=== PATIENT | female | born 1935 | race Caucasian/White ===

== ENCOUNTER 2021-01-19 06:17 | Emergency (ER) | payer MEDICARE, SELFPAY ==
--- NOTE | ~2021-01-19 | CT_ITS ---
EXAMINATION: CT ABDOMEN AND PELVIS WITH CONTRAST CLINICAL INFORMATION: Lower abdominal pain COMPARISON: Renal ultrasound 10/17/2013 TECHNIQUE: Multidetector volumetric images were obtained from the superior aspect of the liver through the pubic symphysis following administration 85 mL of Omnipaque 350 intravenous contrast. Sagittal and coronal reformatted images were obtained on the technologist's workstation. Oral contrast: No This CT examination was performed using dose optimization techniques as appropriate, variously including the following: *Automated exposure control *Adjustment of mA and/or kV according to patient size (this includes techniques or standardized protocols for targeted exams where dose is matched to indication/reason for exam; i.e. extremities or head) *Use of iterative reconstruction technique DLP: 560 mGy-cm FINDINGS: LUNG BASES: No acute findings. LIVER, GALLBLADDER, AND BILIARY TREE: Multiple scattered hepatic cysts. Mild intrahepatic biliary dilatation. Marked dilatation of the common bile duct throughout its extent measuring up to 1.8 cm. Minimal distal tapering to the pancreatic head where it measures 1.2 cm. Cholecystectomy. PANCREAS: Unremarkable. SPLEEN: Unremarkable. ADRENAL GLANDS: Unremarkable. 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 There is 1.4 cm indeterminate low-density lesion exophytic off the lower pole left kidney measuring internal attenuation of 29 Hounsfield units. Right renal cysts. No evidence of left hydronephrosis. Moderate right hydronephrosis and dilated extrarenal pelvis. There is an obstructing proximal ureteral calculus seen measuring 0.7 cm and up to 1100 Hounsfield units. There is minimal periureteral stranding. The ureter distal to the stone is decompressed. BLADDER: Unremarkable. GASTROINTESTINAL TRACT: Diverticulosis without CT evidence of diverticulitis. The appendix is unremarkable. No evidence of bowel obstruction. Duodenal diverticula. ABDOMINAL WALL: No significant hernia is appreciated. LYMPH NODES: No lymphadenopathy within the abdomen or pelvis by CT criteria. VASCULAR: Extensive atherosclerotic disease of the abdominal aorta without aneurysm. Areas of mild dilatation of the aorta are seen measuring up to 2.3 x 2.4 cm. PELVIC VISCERA: Unremarkable. OSSEOUS STRUCTURES: Right hip arthroplasty. Degenerative changes of the spine. CT/CT abdomen pelvis w con IMPRESSION: 1. There is an obstructing proximal right ureteral calculus measuring 0.7 cm resulting in moderate right hydroureteronephrosis. The ureter distal to the calculus is decompressed. 2. 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 3. Indeterminate low-density lesion exophytic off the lower pole left kidney, measuring greater than simple fluid. Although this may represent a complex cyst, confirmation with ultrasound is recommended to ensure the contents are not solid as neoplasm is also within the differential diagnosis. 4. Intrahepatic and extrahepatic biliary dilatation, nonspecific but most likely secondary to the patient's cholecystectomy status as well as age. 5. Other chronic and nonacute findings as above.
[2021-01-19 06:34] VITALS: BP 174/82; PULSE 86; RESP 15; TEMP 36.9; O2SAT 95; BMI 24.6
--- NOTE | 2021-01-19 07:04 | ED_ITS ---
HPI - Abdominal Pain General Chief Complaint: Abdominal Pain Stated Complaint: cramping on lower abd thru back Time Seen by Provider: 01/19/21 07:03 History of Present Illness HPI narrative: 85-year-old female presents today having abdominal pain mainly over lower abdomen last 24-48 hours. Patient denies any fever chills able to urinate fine. No nausea no vomiting. Positive history of cholecystectomy. No other abdominal surgery. No cough no congestion or upper respiratory symptoms. No diarrhea. No change in color of stool. No vomiting. Three episodes of urination no pain. Patient denies any diaphoresis. No chest pain. Pain radiates to the back. She describes it as sharp. Constant. Related Data Previous Rx's Medication Instructions Recorded oxycodone 5 mg tablet 5 mg PO Q8H PRN #7 tab 01/19/21 tamsulosin 0.4 mg capsule (Flomax) 0.4 mg PO DAILY #7 cap 01/19/21 Allergies Allergy/AdvReac Type Severity Reaction Status Date / Time No Known Allergies Allergy Verified 01/19/21 07:03 Review of Systems Review of Systems Positive lower abdominal pain No fever no chills no cough no congestion or upper respiratory symptoms No pain on urination No frequency All systems reviewed otherwise negative Physical Exam Vital Signs: Vital Signs: Last Vital Signs Temp 98.5 F 01/19/21 06:34 Pulse 86 01/19/21 10:00 Resp 18 01/19/21 10:13 BP 182/95 H 01/19/21 10:00 Pulse Ox 96 01/19/21 10:00 Body Mass Index 24.6 Appearance: Alert. Oriented X3. No acute distress. Eyes: Pupils equal, round and reactive to light. ENT: Pharynx normal. Neck: Normal inspection. Neck supple. No lymph nodes noted. No crepitus CVS: Normal heart rate and rhythm. Pulses normal. Normal S1 and S2 Respiratory: No respiratory distress. Breath sounds normal. No Wheezing. No rales Abdomen: Soft and nontender. No rigidity. No distention. good BS x4 Skin: Skin warm and dry. Normal skin color. Normal skin turgor. Extremities: No lower extremity edema. Neurovascular intact to all extremities. No Lacerations. No Rash Neuro: Oriented X 3. No motor deficit. No sensory deficit. Moving all extermities. No slurred speech MDM - Abdominal Pain MDM Narrative Medical decision making narrative: Patient given pain medication with good relief of symptoms. BUN creatinine is normal. Urine showed no signs of infection. Will discharge patient home. There is a mass noted in the kidney. Will require follow-up on an outpatient basis. Risk of cancer explain to patient. CT scan showed no evidence of obstruction, abscess, perforation. Lab Data Result diagrams: 01/19/21 07:30 01/19/21 07:30 Labs: Lab Results 01/19/21 01/19/21 01/19/21 Range/Units 07:30 07:30 08:12 WBC 8.4 (4.8-10.8) X10*3/uL RBC 4.65 (4.20-5.50) X10*6/uL Hgb 15.0 (12.0-16.0) g/dl Hct 42.4 (37-47) % MCV 91.2 (80-98) fL MCH 32.3 (27.0-33.0) pg MCHC 35.4 H (31.0-35.0) g/dl RDW 12.3 (11.0-16.0) % Plt Count 272 (160-400) X10*3/uL MPV 8.8 L (9.4-12.3) fL Immature Gran % (Auto) 0.6 H (0.0-0.4) % Neut % (Auto) 84.3 H (45-73) % Lymph % (Auto) 9.9 L (20-40) % [place] % (Auto) 4.9 (2-11) % Eos % (Auto) 0.1 (0-4) % Baso % (Auto) 0.2 (0-2) % Lymph # (Auto) 0.8 L (1.2-4.9) X10*3/uL [place] # (Auto) 0.4 (0.1-1.2) X10*3/uL Eos # (Auto) 0.0 (0.0-0.4) X10*3/uL Baso # (Auto) 0.0 (0.0-0.2) X10*3/uL Abs Immat Gran (auto) 0.05 H (0.00-0.03) X10*3/uL Absolute Neuts (auto) 7.0 (2.0-8.3) X10*3/uL Absolute Nucleated RBC 0.000 (0.0-0.012) X10*3/uL Nucleated RBC % (auto) 0.0 (0.0-0.2) /100WBC Sodium 142 (135-145) mmol/L Potassium 3.8 (3.3-5.1) mmol/L Chloride 108 (96-108) mmol/L Carbon Dioxide 24 (22-29) mmol/L Anion Gap 14 (12-20) BUN 12 (9-16) mg/dL Creatinine 0.66 (0.5-1.4) mg/dL Estim Creat Clear Calc 57.7 Estimated GFR > 60 Random Glucose 113 (60-115) mg/dL Calcium 9.4 (8.4-10.2) mg/dL Total Bilirubin 0.6 (0.0-1.0) mg/dL Direct Bilirubin 0.2 (0.0-0.5) mg/dL AST 20 (5-31) U/L ALT 13 (0-31) U/L Alkaline Phosphatase 62 (39-117) U/L Total Protein 7.0 (6.5-8.0) g/dL Albumin 4.2 (3.5-5.0) g/dL Lipase 15 (8-78) U/L Urine Color YELLOW Urine Appearance HAZY Urine pH 6.5 (5.0-8.0) Ur Specific [place] 1.015 (1.005-1.025) Urine Protein NEG (NEG-TRACE) MG/DL Urine Glucose (UA) NEG (NEG) MG/DL Urine Ketones NEG (NEG) MG/DL Urine Blood 3+ H (NEG) Urine Nitrite NEG (NEG) Ur Leukocyte Esterase NEG (NEG) Urine RBC 15-29 H (0) /HPF Urine WBC 0-2 (0-4) /HPF Ur Squamous Epith Cells 1+ /LPF Urine Bacteria NONE /LPF Discharge Plan Discharge Clinical Impression: Renal colic Patient Disposition: Home, Self-Care Instructions: Renal Colic (ED) Additional Instructions: A mass/cyst was also found in your kidney. You must follow-up for this. Risk of cancer exists. An ultrasound on an outpatient basis as needed Prescriptions: New tamsulosin [Flomax] 0.4 mg capsule 0.4 mg PO DAILY Qty: 7 RF: 0 oxycodone 5 mg tablet 5 mg PO Q8H PRN (Reason: pain) Qty: 7 RF: 0 Referrals: Sebastian De Jesus III, MD [Physician] - 2 days (A mass was also found in your kidney. An ultrasound is needed to delineate this mass.) [facility], [facility] Past Medical History Attestation statement: The following information was validated with the patient. Social History Social History Advance Directives: No Advance Directives Information Provided: Yes
--- NOTE | 2021-01-19 07:10 | PC.NURSE ---
Report given to RENÉE Cam
[2021-01-19 07:37] VITALS: RESP 18
[2021-01-19] MEDS: ondansetron HCL 4 MG/2 ML VIAL IVPUSH (07:37)
[2021-01-19] MEDS: Morphine Sulfate 2 MG/ML CARTRIDGE IVPUSH ×2 (07:37→09:01)
[2021-01-19 07:38] LABS: MANUAL DIFF FLAG NO
[2021-01-19 07:42] LABS: Basophils Percent Auto 0.2 % (0-2); Eosinophils Percent Auto 0.1 % (0-4); Hematocrit 42.4 % (37-47); Imm Gran Abs Auto 0.05 X10*3/uL (0.00-0.03); Imm Gran Pct Auto 0.6 % (0.0-0.4); Lymphocytes Absolute Auto 0.8 X10*3/uL (1.2-4.9); Lymphocytes Percent Auto 9.9 % (20-40); Mean Corpuscular HGB Conc 35.4 g/dl (31.0-35.0); Mean Corpuscular Hemoglobin 32.3 pg (27.0-33.0); Mean Corpuscular Volume 91.2 fL (80-98); Mean Platelet Volume 8.8 fL (9.4-12.3); Monocytes Absolute Auto 0.4 X10*3/uL (0.1-1.2); Monocytes Percent Auto 4.9 % (2-11); Neutrophils Percent Auto 84.3 % (45-73); Platelet Count 272 X10*3/uL (160-400); Red Blood Count 4.65 X10*6/uL (4.20-5.50); Red Cell Distribution Width 12.3 % (11.0-16.0); White Blood Count 8.4 X10*3/uL (4.8-10.8)
[2021-01-19] MEDS: 0.9 % Sodium Chloride 1,000 ML 999 ML IV (07:42)
[2021-01-19 07:59] LABS: Alanine Aminotransferase 13 U/L (0-31); Albumin Level 4.2 g/dL (3.5-5.0); Alkaline Phosphatase 62 U/L (39-117); Anion Gap 14 (12-20); Aspartate Amino Transferase 20 U/L (5-31); Bilirubin Direct 0.2 mg/dL (0.0-0.5); Bilirubin Total 0.6 mg/dL (0.0-1.0); Blood Urea Nitrogen 12 mg/dL (9-16); Calcium 9.4 mg/dL (8.4-10.2); Carbon Dioxide 24 mmol/L (22-29); Chloride 108 mmol/L (96-108); Creatinine Clr Calc Pharmacy 57.7; Estimated Glomerular Filt Rate > 60; Glucose Random 113 mg/dL (60-115); Lipase 15 U/L (8-78); Potassium 3.8 mmol/L (3.3-5.1); Sodium 142 mmol/L (135-145)
[2021-01-19 08:00] VITALS: BP 164/81; PULSE 86; RESP 16; O2SAT 96
[2021-01-19 08:23] LABS: Appearance Urine HAZY; Color Urine YELLOW; Glucose Urine UA NEG (NEG); Leukocyte Esterase Urine NEG (NEG); Nitrite Urine NEG (NEG); PH 6.5 (5.0-8.0); Specific Gravity - Urine 1.015 (1.005-1.025); UACC Culture Trigger NO; Urine Blood 3+ (NEG); Urine Ketones NEG (NEG); Urine Protein NEG (NEG-TRACE)
[2021-01-19 08:35] LABS: Squamous Epithelial Cell Urine 1+ /LPF; WBC Urine 0-2 /HPF (0-4)
[2021-01-19 09:01] VITALS: RESP 18
[2021-01-19 10:00] VITALS: BP 182/95; PULSE 86; RESP 18; O2SAT 96
[2021-01-19 10:13] VITALS: RESP 18
[2021-01-19] MEDS: HYDROmorphone HCl 0.5 MG/0.5 ML SYRINGE 0.25 MG IVPUSH (10:13)
== END 2021-01-19 12:14 | disposition home or self-care (01) ==
PROVIDERS: Emergency Provider Emergency Medicine Emergency Medical Services; PCP Internal Medicine
DX: N23 Unspecified renal colic (principal); Z79.899 Other long term (current) drug therapy
CPT/HCPCS: 36415; 74177; 80048; 80076; 81001; 83690; 85025; 96361; 96372; 96374; 96376; 99284; J1170; J2270; J2405

== ENCOUNTER → 2024-08-21 11:40 | Outpatient (BNVA) | payer MEDICARE, SELFPAY | PROVIDERS: PCP Internal Medicine ==